=== PATIENT | female | born 1980 | race African-American/Black ===

== ENCOUNTER 2016-11-26 12:10 | Emergency (ER) | payer OTHER ==
[2016-11-26 12:25] VITALS: BMI 26.6
[2016-11-26] MEDS ORDERED: KETOROLAC TROMETHAMINE 30 MG/1 ML VIAL IVPUSH ONE (13:23)
[2016-11-26] MEDS ORDERED: ONDANSETRON 4 MG/2 ML VIAL IVPUSH ONE (13:23)
[2016-11-26] MEDS ORDERED: SODIUM CHLORIDE 1,000 ML IV STA (13:24)
--- NOTE | 2016-11-26 13:25 | PDOC ---
History of Present Illness - General Chief Complaint: Nausea/Vomiting Stated Complaint: VOMITING, PAIN Time Seen by Provider: 11/26/16 13:06 History Source: Patient - History of Present Illness Timing/Duration: other Associated Symptoms: reports: nausea/vomiting. denies: chest pain, cough, fever /chills, headaches, shortness of breath Past History - Past Medical History Allergies/Adverse Reactions: Allergies Allergy/AdvReac Type Severity Reaction Status Date / Time No Known Allergies Allergy Verified 11/26/16 12:22 Home Medications: Ambulatory Orders Amoxicillin/Potassium Clav [Augmentin 875-125 Tablet] 1 each PO BID #20 tablet 04/15/15 Oxycodone HCl/Acetaminophen [Percocet 5/325 -] 1 tab PO Q6H PRN #4 tablet Acetaminophen [Tylenol] 650 mg PO Q6H #30 tablet 11/26/16 Ondansetron HCl [Zofran] 4 mg PO Q8H #20 tablet 11/26/16 Asthma: No Cancer: No Cardiac Disorders: No Diabetes: No HTN: No Suicide Attempt (Hx): No Seizures: No Thyroid Disease: No - Surgical History Abdominal Surgery: (PREG W/TWINS IN 2014; ONE ; PT HAD MED ) - Reproductive History (#): 7 Para: 6 Therapeutic (s) & number: Yes (1) Spontaneous : 1 - Immunization History Immunization Up to Date: Yes - Psycho/Social/Smoking Cessation Hx Anxiety: No Suicidal Ideation: No Smoking History: Never smoked Number of Cigarettes Smoked Daily: 15 Information on smoking cessation initiated: No Hx Alcohol Use: No Drug/Substance Use Hx: Yes (MARIJUANA) Substance Use Type: Marijuana Hx Substance Use Treatment: No Review of Systems - Review of Systems Constitutional: No: Chills, Fever Respiratory: No: Cough, Shortness of Breath Cardiac (ROS): No: Chest Pain ABD/GI: Yes: Nausea, Vomiting. No: Diarrhea : No: Dysuria *Physical Exam - Vital Signs Last Vital Signs Temp Pulse Resp BP Pulse Ox 98.9 F 72 16 155/102 98 11/26/16 12:22 11/26/16 12:22 11/26/16 12:22 11/26/16 12:22 11/26/16 12:22 - Physical Exam General Appearance: Yes: Appropriately Dressed. No: Apparent Distress HEENT: positive: Normal Voice, TMs Normal, Tonsillar Exudate. negative: Scleral Icterus (R), Scleral Icterus (L) Neck: positive: Supple. negative: Lymphadenopathy (R), Lymphadenopathy (L) Respiratory/Chest: positive: Lungs Clear, Normal Breath Sounds. negative: Respiratory Distress Cardiovascular: positive: Regular Rate, S1, S2 Gastrointestinal/Abdominal: positive: Soft. negative: Tender Musculoskeletal: negative: CVA Tenderness Integumentary: positive: Dry, Warm Neurologic: positive: Fully Oriented, Alert, Normal Mood/Affect ED Treatment Course - LABORATORY CBC & Chemistry Diagram: 11/26/16 13:35 11/26/16 13:35 Medical Decision Making - Medical Decision Making 11/26/16 13:33 36-year-old female, denies any past medical history, here with sudden onset nausea, vomiting that started 2 days ago. States her abdomen and back hurts when she vomits, otherwise is not having any abdominal pain. Denies diarrhea, constipation, fever or chills. Also complaining of sore throat. No recent travel or sick contacts. Admits to smoking marijuana but has not smoked in over a year as per patient See exam N/V Mildly hypertensive in ED, otherwise stable w/ b/l tonsillar exudates b/l, exam otherwise unremarkable R/o strep -throat cx -pain control -zofran -IVF -labs 11/26/16 15:47 11/26/16 15:48 Labs unremarkable for mildly decreased potassium. K repleted. Patient reports feeling better and requesting food. Will do po and reassess 11/26/16 16:21 Pt able to tolerate po. Blood pressure improved on reassessment. Patient stable for discharge with supportive treatment. Reasons to return discussed with patient 11/26/16 16:34 *DC/Admit/Observation/Transfer Diagnosis at time of Disposition: Nausea & vomiting Qualifiers: Vomiting type: unspecified Vomiting Intractability: non-intractable Qualified Code(s): R11.2 - Nausea with vomiting, unspecified - Discharge Dispostion Disposition: HOME Condition at time of disposition: Improved - Prescriptions Prescriptions: Acetaminophen [Tylenol] 650 mg PO Q6H #30 tablet Ondansetron HCl [Zofran] 4 mg PO Q8H #20 tablet - Referrals Referrals: Dean Cervantes MD [Primary Care Provider] - - Patient Instructions Printed Discharge Instructions: DI for Vomiting -- Adult Additional Instructions: The cause of your symptoms is most likely viral as your blood work were normal. Rest, drink plenty of fluids and take medications as directed. If symptoms worsen or your develop abdominal pain, return to ED - Post Discharge Activity Work/School Note: Back to Work
[2016-11-26 13:45] LABS: BASOPHIL 0.4 % (0-2.0); EOSINOPHIL 0.5 % (0-4.5); MCH 31.3 pg (25.7-33.7); MCHC 33.5 g/dl (32.0-36.0); MEAN CELL VOLUME 93.5 fl (80-96); MEAN PLT VOLUME 7.9 fl (7.5-11.1); NEUTROPHILS 71.6 % (42.8-82.8); PLATELET COUNT 251 K/MM3 (134-434); RDW 13.8 % (11.6-15.6); WHITE BLOOD COUNT 8.8 K/mm3 (4.0-10.0)
[2016-11-26] MEDS ORDERED: KETOROLAC TROMETHAMINE 30 MG/1 ML VIAL ONE ×2 (13:46)
[2016-11-26] MEDS ORDERED: ONDANSETRON 4 MG/2 ML VIAL ONE (13:46)
[2016-11-26 14:01] LABS: ALBUMIN 3.6 g/dl (3.4-5.0); ALK PHOS 90 U/L (45-117); ANION GAP 14 (8-16); BILIRUBIN,TOTAL 0.4 mg/dL (0.2-1.0); CO2 25 mmol/L (21-32); CREATININE 0.7 mg/dL (0.55-1.02); GLUCOSE,RANDOM 84 mg/dL (74-106); SGOT/AST 10 U/L (15-37); SGPT/ALT 15 U/L (12-78); TOT PROT 7.2 g/dl (6.4-8.2)
[2016-11-26 14:09] LABS: URINE APPEARANCE CLOUDY; URINE BLOOD 3+ (NEGATIVE); URINE COLOR AMBER; URINE GLUCOSE (UA) NEGATIVE (NEGATIVE); URINE KETONE 2+ (NEGATIVE); URINE NITRITE NEGATIVE (NEGATIVE); URINE UROBILINOGEN 4.0 E.U/dl mg/dL (0.2-1.0)
[2016-11-26 14:18] LABS: URINE LEUK ESTERASE 1+ (NEGATIVE); URINE PROTEIN 2+ (NEGATIVE)
[2016-11-26 14:24] LABS: URINE MUCUS MODERATE; URINE RBC 375 /hpf (0-3); URINE WBC 30 /hpf (3-5)
[2016-11-26 14:51] LABS: HIV 1 & 2 AB NEGATIVE; HIV 1 AGp24 NEGATIVE
[2016-11-26] MEDS ORDERED: POTASSIUM CHLORIDE ORAL LIQUID 20 MEQ/15 ML PO ONE (15:47)
[2016-11-26] MEDS ORDERED: POTASSIUM CHLORIDE TABS 20 MEQ TABLET.ER (FP) PO ONE (16:22)
[2016-11-26 16:36] VITALS: BP 157/97; PULSE 53; TEMP 98.3
== END 2016-11-26 16:51 | disposition home or self-care (01) ==
LOC: JER 12:10
PROC: 3E0337Z Introduction of Electrolytic and Water Balance Substance into Peripheral Vein, Percutaneous Approach (ICD-10-PCS; principal; 2016-11-26)
PROC: 3E0333Z Introduction of Anti-inflammatory into Peripheral Vein, Percutaneous Approach (ICD-10-PCS; 2016-11-26)
PROC: 3E033GC Introduction of Other Therapeutic Substance into Peripheral Vein, Percutaneous Approach (ICD-10-PCS; 2016-11-26)
DX: R11.2 Nausea with vomiting, unspecified (principal); E87.6 Hypokalemia; F17.210 Nicotine dependence, cigarettes, uncomplicated; F12.10 Cannabis abuse, uncomplicated
CPT/HCPCS: 36415; 80053; 81003; 81015; 83690; 84703; 85025; 87070; 87077; 87389; 87430; 99281-25; 99283-25

== ENCOUNTER 2019-12-28 13:12 | Inpatient (IN) | payer OTHER ==
[2019-12-28 13:21] VITALS: BMI 29.5
--- OUTSIDE RECORDS SUMMARY | 2019-12-28 13:22 | XMS ---
:1980 Author Organization [facility] Support Name Relationship Address Phone UE Unavailable Unavailable Unavailable SANCHEZ MOTHER [address] [place] [id number] Re-disclosure Warning The records that you are about to access may contain information from federally- assisted alcohol or drug abuse programs. If such information is present, then the following federally mandated warning applies: This information has been disclosed to you from records protected by federal confidentiality rules (42 CFR part 2). The federal rules prohibit you from making any further disclosure of this information unless further disclosure is expressly permitted by the written consent of the person to whom it pertains or as otherwise permitted by 42 CFR part 2. A general authorization for the release of medical or other information is NOT sufficient for this purpose. The Federal rules restrict any use of the information to criminally investigate or prosecute any alcohol or drug abuse patient.The records that you are about to access may contain highly sensitive health information, the redisclosure of which is protected by Article 27-F of the [facility] Public Health law. If you continue you may haveaccess to information: Regarding HIV / AIDS; Provided by facilities licensed or operated by the [facility] Office of Mental Health; or Provided by the [facility] Office for People With Developmental Disabilities. If such information is present, then the following [facility] mandated warning applies: This information has been disclosed to you from confidential records which are protected by state law. State law prohibits you from making any further disclosure of this information without the specific written consent of the person to whom it pertains, or as otherwise permitted by law. Any unauthorized further disclosure in violation of state law may result in a fine or penitentiary sentence or both. A general authorization for the release of medical or other information is NOT sufficient authorization for further disclosure. Insurance Providers Payer name Policy type Policy ID Covered Covered constitution party's Policy P flaca / Coverage constitution party ID relationship to [employer] Inf ormation type jimenez [employer] MEDICAID [id number] O
--- NOTE | 2019-12-28 14:03 | PDOC ---
History of Present Illness - General Chief Complaint: Shortness of Breath Stated Complaint: R/O COVID Time Seen by Provider: 12/28/19 13:28 - History of Present Illness Initial Comments: HPI: 12/28/19 14:00 39 yo F PMH smoker, walking pneumonia 2 years ago, tooth infections (planned to have all teeth removed), presenting with SOB. Notes that she has been feeling increasingly SOB over the past 2 weeks, and is now having difficulty sleeping. Endorses SHEA (can't climb hills) and orthopnea (requiring at least 2 pillows to be able to lay relatively supine), and further endorses watery diarrhea for the past three days. Denies CP, fevers/chills, abd pain, CORONA, N/V, urinary changes. States that her breathing feels similar to when she had pneumonia. Denies any recent travel and stays primarily at home, only goes to grocery store and wears mask when she goes. No known COVID contacs, lives at home with herself and her children. Notes that two of her children go to school in person four days a week. Reports that she has been taking ibuprofen 800 mg at least twice a day for tooth pain over the same time period. ROS: GENERAL/CONSTITUTIONAL: endorses difficulty sleeping. Denies fever, chills, diaphoresis, generalized weakness HEAD, EYES, EARS, NOSE AND THROAT: denies rhinorrhea, nasal congestion NEUROLOGIC: denies headache, focal weakness, dizziness, mental status changes CARDIOVASCULAR: denies chest pain, syncope, palpitations, irregular heart rate, lightheadedness, peripheral edema RESPIRATORY: endorses cough, shortness of breath, dyspnea with exertion, and orthopnea GASTROINTESTINAL: endorses diarrhea. Denies abdominal pain, abdominal distension, nausea, vomiting, constipation GENITOURINARY: denies dysuria, frequency, urgency MUSCULOSKELETAL: denies myalgia, arthralgia, joint swelling, back pain, neck pain SKIN: denies rash, itching PE: Gen: well-developed, well-nourished, appears uncomfortable Neuro: AAOX4, CN II-XII intact HEENT: atraumatic, normocephalic Neck: trachea midline, supple CV: regular rate, regular rhythm, no murmurs, rubs, or gallops Pulm: poor inspiratory effort, otherwise CTA b/l, no wheezing Abd: soft, non-distended, non-tender MSK: full ROM, intact pulses Extr: no edema, no deformities Skin: warm, dry MDM: Concern for COVID-19 vs PNA vs CHF. Potentially masking fever with ibuprofen use. - EKG, CXR - trop - COVID order set - COVID-19 swab - likely admit EKG normal sinus at 92 bpm, SC 150, QRS 90, QTc 464, T wave inversions in V5 and V6. 12/28/19 15:33 Serum preg negative, CBC unremarkable. 12/28/19 16:04 BNP >9000. Concerning for new onset CHF. Will f/u CXR, admit. 12/28/19 16:24 CXR with bilateral fluid overload. Will give Lasix 40mg, admit. 12/28/19 16:[address] Arcenio Cervantes, patient has never been to his office. Patient believes that she visited him two months ago. Will admit to hospitalist. Past History - Medical History Allergies/Adverse Reactions: Allergies Allergy/AdvReac Type Severity Reaction Status Date / Time No Known Allergies Allergy Verified 12/28/19 13:17 Home Medications: Ambulatory Orders Acetaminophen [Tylenol] 650 mg PO Q6H #30 tablet 11/26/16 Ondansetron HCl [Zofran] 4 mg PO Q8H #20 tablet 11/26/16 Asthma: No Cancer: No Cardiac Disorders: No Diabetes: No HTN: No Seizures: No Thyroid Disease: No - Surgical History Abdominal Surgery: (PREG W/TWINS IN 2014; ONE ; PT HAD MED ) - Reproductive History Is Patient Now?: No (#): 7 Para: 6 Therapeutic (s) & number: Yes (1) Spontaneous : 1 - Immunization History Immunization Up to Date: Yes - Psycho-Social/Smoking History Smoking History: Current every day smoker Number of Cigarettes Smoked Daily: 10 Information on smoking cessation initiated: No - Substance Abuse Hx (Audit-C & DAST Scrn) How often the patient has a drink containing alcohol: Never Score: In Men: 4 or > Positive; In Women: 3 or > Positive: 0 Screen Result (Pos requires Nsg. Audit-10AR): Negative *Physical Exam - Vital Signs Last Vital Signs Temp Pulse Resp BP Pulse Ox 99.0 F 75 26 H 122/78 92 L 10/15/20 13:17 12/28/19 13:17 12/28/19 13:17 12/28/19 13:17 12/28/19 13:17 ED Treatment Course - LABORATORY CBC & Chemistry Diagram: 12/29/19 11:30 12/29/19 11:30 Discharge - Discharge Information Problems reviewed: Yes Clinical Impression/Diagnosis: SOB (shortness of breath) on exertion, Orthopnea, New onset of congestive heart failure Disposition: TRANSFER ACUTE CARE/OTHER HOSP - Follow up/Referral - Patient Discharge Instructions - Post Discharge Activity
[2019-12-28 14:48] LABS: BASO % 0.8 % (0-2.0); EOS % 1.9 % (0-4.5); HEMATOCRIT 34.5 % (32.4-45.2); HEMOGLOBIN 11.2 GM/dL (10.7-15.3); LYMPH % 33.5 % (8-40); MCH 29.5 pg (25.7-33.7); MCHC 32.6 g/dl (32.0-36.0); MEAN CELL VOLUME 90.6 fl (80-96); MEAN PLT VOLUME 8.4 fl (7.5-11.1); MONO % 6.4 % (3.8-10.2); NEUT % 57.4 % (42.8-82.8); PLATELET COUNT 301 K/MM3 (134-434); RDW 14.4 % (11.6-15.6); WHITE BLOOD COUNT 5.4 K/mm3 (4.0-10.0)
[2019-12-28 15:33] LABS: ALBUMIN 3.1 g/dl (3.4-5.0); ANION GAP 5 MMOL/L (8-16); BLOOD UREA NITROGEN 10.8 mg/dL (7-18); CALCIUM 8.4 mg/dL (8.5-10.1); CHLORIDE 110 mmol/L (98-107); CO2 26 mmol/L (21-32); CREATININE 0.7 mg/dL (0.55-1.3); GLUCOSE,RANDOM 93 mg/dL (74-106); MAGNESIUM 2.2 mg/dL (1.8-2.4); POTASSIUM 3.4 mmol/L (3.5-5.1); SGOT/AST 20 U/L (15-37); SGPT/ALT 52 U/L (13-61); SODIUM 141 mmol/L (136-145)
[2019-12-28 15:37] LABS: ALK PHOS 67 U/L (45-117); BILIRUBIN,TOTAL 0.7 mg/dL (0.2-1); N-TERMINAL BNP 9396.2 pg/ml (5-125)
[2019-12-28 15:48] LABS: LDH 183 U/L (84-246)
--- NOTE | 2019-12-28 16:21 | PDOC ---
Documentation entered by Prem Hammonds SCRIBE, acting as scribe for Baltazar Hall MD. Baltazar Hall MD: This documentation has been prepared by the Nasra pereira Angel, SCRIBE, under my direction and personally reviewed by me in its entirety. I confirm that the documentation accurately reflects all work, treatment, procedures, and medical decision making performed by me. Attending Attestation - Resident Resident Name: DarronDemetra - ED Attending Attestation I have performed the following: I have examined & evaluated the patient, The case was reviewed & discussed with the resident, I agree w/resident's findings & plan, Exceptions are as noted - HPI HPI: 12/28/19 14:26 The patient is a 39 year old female with a significant past medical history of walking pneumonia (2 years ago), smoker (quit 1 wk ago 2/2 sxs) and teeth infections who presents to the ED with worsening SOB for the past 2 weeks. The patient states she has had difficulty sleeping as she is short of breath when lying down and dyspnea on exertion. The patient notes her symptoms feel similar to when she had pneumonia in the past. The patient also reports 3 days of watery diarrhea, no blood in the stool. The patient has been taking 800mg of Ibuprofen for her tooth pain. The patient denies chest pain, fever/chills, recent travel, abdominal pain, nausea, vomiting or headache. Denies LE edema, calf pain, or immobility. Does not take exogenous hormones. No personal or fam hx of clots. - Physicial Exam PE: 12/28/19 14:11 GENERAL: Awake, alert, and fully oriented, in no acute distress EYES: PERRLA, EOMI, sclera anicteric, conjunctiva clear ENT: Oropharynx clear without exudates. Moist mucosa NECK: Normal ROM, supple, no lymphadenopathy, JVD, or masses LUNGS: Diminished BS at bases R>L, No wheezes, and no crackles HEART: Regular rate and rhythm, normal S1 and S2, no murmurs, rubs or gallops ABDOMEN: Soft, nontender, normoactive bowel sounds. No guarding, no rebound. No masses EXTREMITIES: Normal range of motion, no edema. No clubbing or cyanosis. No cords, erythema, or tenderness NEUROLOGICAL: Normal speech, cranial nerves intact, 5/5 strength in all 4 extremities, normal sensation to light touch in all 4 extremities, normal cerebellar exam, normal gait SKIN: Warm, Dry, normal turgor, no rashes or lesions noted. - Medical Decision Making 12/28/19 15:15 39-year-old female with a history of walking pneumonia and smoking presents the emergency department with 2 weeks of progressive shortness of breath on exertion and orthopnea. Vitals remarkable for tachypnea and hypoxia to 92% which corrects with 3 L of nasal cannula. Patient has diminished breath sounds at the bases on exam, right greater than left. Differential includes congestive heart failure versus pneumonia versus COVID versus pulmonary embolism. Symptoms including SHEA and orthopnea as well as diminished BS more concerning for CHF but if w/u is not consistent with this, will consider CTA. Pt also has no CP and no RF for PE. Plan: -tele -labs -UPT -COVID -consider CTA to r/o PE -anticipate admission 12/28/19 16:21 Labs with elevated BNP CXR on my read with congestion, cardiomegaly Likely new onset CHF Will diurese, admit for further w/u Discharge - Discharge Information Problems reviewed: Yes Clinical Impression/Diagnosis: SOB (shortness of breath) on exertion, Orthopnea, New onset of congestive heart failure - Follow up/Referral Referrals: Arcenio Cervantes [facility] IM [Primary Care Provider] - - Patient Discharge Instructions - Post Discharge Activity
[2019-12-28] MEDS ORDERED: FUROSEMIDE 40 MG/4 ML INJECTABLE VIAL IVPUSH ONE (16:25)
[2019-12-28] MEDS ORDERED: FUROSEMIDE 40 MG/4 ML INJECTABLE VIAL ONE (17:00)
--- NOTE | 2019-12-28 17:14 | HP ---
CHIEF COMPLAINT: SOB PCP: Dr. Arcenio Cervantes HISTORY OF PRESENT ILLNESS: 39 F h/o THC abuse, active smoker, h/o poor dentition w/ multiple dental caries, presents with SOB, cough, orthopnea/PND x2-3 days. Patient endorses being at a libertarian last weekend in [place] with some friends where she binged on alcohol and marijuana, then around Wed-Wednesday started to feel SOB and not able to lay flat. Patient endorses living with her 6 children, denies anyone feeling ill in the household. Pt. endorses heavy sensation in chest, and can't quite catch her breath which warranted her to go to ED. Patient also endorses subjective fever and chills. ER course was notable for: (1) CXR s/o cardiomegaly, congestive changes (2) BNP >9000 (3) IV Lasix 40mg given (4) Zosyn started for tooth abscess Recent Travel: traveled to [place] last weekend ([place], [place]) PAST MEDICAL HISTORY: as above PAST SURGICAL HISTORY: denies Social History: yes Smoking: heavy smoker Alcohol: yes Drugs: Yes, THC Allergies No Known Allergies Allergy (Verified 12/28/19 13:17) HOME MEDICATIONS: Home Medications Medication Instructions Recorded Acetaminophen [Tylenol] 650 mg PO Q6H #30 tablet 11/26/16 Ondansetron HCl [Zofran] 4 mg PO Q8H #20 tablet 11/26/16 PHYSICAL EXAMINATION Vital Signs - 24 hr 12/28/19 13:17 Temperature 99.0 F Pulse Rate 75 Respiratory 26 H Rate Blood Pressure 122/78 O2 Sat by Pulse 92 L Oximetry (%) GA AAxo3, answering to questions, occasional cough HEENT NC/AT, no JVD, dry MM, poor dentition w/ some maxillary tenderness, no oral thrush Chest crackles at bases, slightly tachypneic CVS S1, S2+, RRR, no m/r/g Abd Soft, NT, ND, BS+ no CVA tenderness Ext no LE edema, no calf tenderness Laboratory Results - last 24 hr 12/28/19 12/28/19 12/28/19 14:25 14:25 14:25 WBC 5.4 RBC 3.80 Hgb 11.2 Hct 34.5 D MCV 90.6 MCH 29.5 MCHC 32.6 RDW 14.4 Plt Count 301 MPV 8.4 Absolute Neuts (auto) 3.1 Neutrophils % 57.4 Lymphocytes % 33.5 D Monocytes % 6.4 Eosinophils % 1.9 D Basophils % 0.8 Nucleated RBC % 0 Sodium 141 Potassium 3.4 L Chloride 110 H Carbon Dioxide 26 Anion Gap 5 L BUN 10.8 Creatinine 0.7 Est GFR (CKD-EPI)AfAm 128.28 Est GFR (CKD-EPI)NonAf 110.69 Random Glucose 93 Calcium 8.4 L Magnesium 2.2 Ferritin 11.9 Total Bilirubin 0.7 AST 20 ALT 52 Alkaline Phosphatase 67 LD Total 183 Troponin I 0.03 C-Reactive Protein < 0.3 B-Natriuretic Peptide 9396.2 H Total Protein 6.0 L Albumin 3.1 L Serum , Qual Negative Home Medications Medication Instructions Recorded Acetaminophen [Tylenol] 650 mg PO Q6H #30 tablet 11/26/16 Ondansetron HCl [Zofran] 4 mg PO Q8H #20 tablet 11/26/16 Current Medications Generic Name Dose Route Start Last Admin Trade Name Freq PRN Reason Stop Dose Admin Piperacillin Sod/Tazobactam 50 mls @ 100 mls/hr 12/28/19 18:00 Sod 3.375 gm/ Dextrose IVPB Q8H-IV JOVAN Protocol Piperacillin Sod/Tazobactam 50 mls @ 100 mls/hr 12/28/19 18:00 Sod 3.375 gm/ Dextrose IVPB 12/29/19 10:29 Q8H-IV JOVAN Protocol ASSESSMENT/PLAN: 39 F r/o COVID pneumonitis r/o COVID/viral induced cardiomyopathy New onset CHFE THC abuse Multiple dental caries w/ suspected dental abscess Plan: IV Lasix 40mg dose given in ED, cont. Lasix 40mg daily Echo to assess LV function Serial EKG/troponins Send TFTs/A1c/lipids Send inflammatory markers for COVID Swab for full respiratory panel (RSV/Flu/Strep/Mycoplasma/Legionella) Cardiology evaluation for new onset CHF ID evaluation DVT ppx: Lovenox SC Family Medical History Family History: As Documented Visit type - Emergency Visit Emergency Visit: Yes Care time: The patient presented to the Emergency Department on the above date and was hospitalized for further evaluation of their emergent condition. - New Patient This patient is new to me today: Yes Date on this admission: 12/28/19 - Critical Care Critical Care patient: No
[2019-12-28] MEDS ORDERED: PIPERACILLIN/TAZOB 3.375 GM 3.375 GM in DEXTROSE 5%-WATER - 50 ML IVPB SCH (18:00)
[2019-12-28] MEDS ORDERED: POTASSIUM CHLORIDE TABS 20 MEQ TABLET.ER (FP) PO ONE ×2 (18:00→21:31)
--- OUTSIDE RECORDS SUMMARY | 2019-12-28 18:08 | XMS ---
:1980 Author Organization [facility] Support Name Relationship Address Phone UE Unavailable Unavailable Unavailable UE Unavailable Unavailable Unavailable SANCHEZ MOTHER [address] [phone] [place] [id number] Re-disclosure Warning The records that you are [...] is protected by Article 27-F of the [facility] Public Health law. If you continue you may haveaccess to information: Regarding HIV / AIDS; Provided by facilities licensed or operated by the [facility] Office of Mental Health; or Provided by the [facility] Office for People With Developmental Disabilities. If such information is present, then the following [facility] mandated warning applies: This information has been [...] law may result in a fine or custodial sentence or both. A general authorization for the release of medical or other information is NOT sufficient authorization for further disclosure. Insurance Providers Payer name Policy type Policy ID Covered Covered alliance party's Policy P flaca / Coverage alliance party ID relationship to [employer] Inf ormation type jimenez [place] [id number] [facility] [place]
[2019-12-28 18:20] LABS: CHOLESTEROL 151 mg/dL (50-200); HDL CHOLESTEROL 67 mg/dL (40-60); LDL CHOLESTEROL (ONLY SJRH) 71 mg/dL (5-100); TRIGLYCERIDES 83 mg/dL (0-150)
[2019-12-28 18:35] LABS: URINE APPEARANCE CLEAR; URINE BILIRUBIN NEGATIVE (NEGATIVE); URINE COLOR YELLOW; URINE GLUCOSE (UA) NEGATIVE (NEGATIVE); URINE KETONE NEGATIVE (NEGATIVE); URINE LEUK ESTERASE NEGATIVE (NEGATIVE); URINE NITRITE NEGATIVE (NEGATIVE); URINE PROTEIN TRACE (NEGATIVE)
[2019-12-28 18:41] LABS: COCAINE, UR NEGATIVE ng/ml (CUTOFF=300); OPIATES, URI NEGATIVE ng/ml (CUTOFF=300); PHENCYCLIDINE,URINE NEGATIVE ng/ml (CUTOFF=25); URINE AMPHETAMINES NEGATIVE ng/ml (CUTOFF=500); URINE BARBITURATES NEGATIVE ng/ml (CUTOFF=200); URINE BENZODIAZEPINES NEGATIVE ng/ml (CUTOFF=200)
[2019-12-28 18:46] LABS: METHADONE, UR NEGATIVE ng/ml (CUTOFF=300)
[2019-12-28 20:12] LABS: INR 0.99 (0.83-1.09)
[2019-12-28 20:15] LABS: ACTIVATED PTT 29.3 SECONDS (25.2-36.5)
[2019-12-28] MEDS ORDERED: PIPERACILLIN/TAZOB 3.375 GM 3.375 GM/50 ML BAG IVPB ONE (21:31)
[2019-12-28] MEDS: PIPERACILLIN/TAZOB 3.375 GM 3.375 GM in DEXTROSE 5%-WATER - 50 ML IVPB SCH (21:49)
[2019-12-29] MEDS ORDERED: PIPERACILLIN/TAZOB 3.375 GM 3.375 GM/50 ML BAG IVPB ONE ×2 (02:37→11:05)
[2019-12-29] MEDS: PIPERACILLIN/TAZOB 3.375 GM 3.375 GM in DEXTROSE 5%-WATER - 50 ML IVPB SCH ×2 (02:54→11:00)
--- NOTE | 2019-12-29 05:53 | CON.CARD ---
Consult Consult Specialty:: Cardiology Referred by:: Dr. Vigil Reason for Consultation:: CHF, new onset - History of Present Illness Chief Complaint: SOB History of Present Illness: 39M with hx THC use presents with SOB/cough and orthopnea. Found to have BNP 9K D- dimer negative. Chest CT with peripheral vascular congestion, cardiomegaly as well as pleural and pericardia effusions. New onset CHF. Received IV Lasix in ER. COVID pending She describes 2 weeks of progressive SHEA, orthopnea. Denies fever/chills No edema Denies palps/CP Denies recent viral illness. Mother may have had similar history. She denies use of cocaine. Normal thyroid studies - History Source History Provided By: Patient Limitations to Obtaining History: No Limitations - Past Medical History [employer]: No: Alzheimer's, CVA, Dementia, Migraine, Multiple Sclerosis, Peripheral Neuropathy, Parkinson's, Seizure, Syncope, TIA, Vertigo, Other Cardio/Vascular: No: AFIB, Aneurysm, Aortic Insufficiency, Aortic Stenosis, CAD, CHF, Deep Vein Thrombosis, HTN, Hyperlipdemia, ND, Mitral Insufficiency, Mitral Stenosis, Murmur, Pulmonary Hypertension, Other Pulmonary: No: Asthma, Bronchitis, Cancer, COPD, O2 Dependent, Pneumonia, Previously Intubated, Pulmonary Embolus, Pulmonary Fibrosis, Sleep Apnea, Other Gastrointestinal: No: Ascites, Cancer, Constipation, Crohn's Disease, Diverticulitis, Diverticulosis, Esophageal Varices, Gastritis, GERD, GI Bleed, Hemorrhoids, Hiatal Hernia, Inflamatory Bowel Disease, Irritable Bowel Disease, Pancreatitis, Peptic Ulcer Disease, Ulcerative Colitis, Other Hepatobiliary: No: Cirrhosis, Cholelithiasis, Cholecystitis, Choledocholithiasis, Hepatitis A, Hepatitis B, Hepatitis C, Other Renal/: No: Renal Failure, Renal Inusuff, BPH, Cancer, Hematuria, Hemodialysis, Neurogenic Bladder, Renal Calculi, UTI, Other ...LMP: 12/16/19 ...: No Heme/Onc: No: Anemia, B12 Deficiency, Bleeding Disorder, Cancer, Current Chemotherapy, Current Radiation Therapy, Hemochromatosis, Hypercoaguable State, Myeloproliferative Synd, Sickle Cell Disease, Sickle Cell Trait, Thrombocytopenia, Other Infectious Disease: No: AIDS, C-Diff, Herpes Zoster, HIV, MRSA, STD's, Tuberculosis, VREF, Other Psych: No: Addictions, Anxiety, Bipolar, Depression, Panic, Psychosis, S chizophrenia, Other Musculoskeletal: No: Bursitis, Chronic low back pain, Hemiparesis, Hemiplegia, Osteoarthritis, Paraplegia, Other Rheumatology: No: Fibromyalgia, Gout, Lupus, Rheumatoid Arthritis, Sarcoidosis, Vasculitis, Other ENT: No: Allergic Rhinitis, Sinusitis, Other Endocrine: No: Ford's Disease, Hernandez's Disease, Diabetes Insipidus, Diabetes Mellitus, Hyperparathyroidism, Hyperthyroidism, Hypothyroidism, Osteopenia, SIADH, Other - Alcohol/Substance Use Hx Alcohol Use: No - Smoking History Smoking history: Current every day smoker Aproximately how many cigarettes per day: 10 - Social History ADL: Independent History of Recent Travel: No Home Medications - Allergies Allergies/Adverse Reactions: Allergies Allergy/AdvReac Type Severity Reaction Status Date / Time No Known Allergies Allergy Verified 12/28/19 13:17 - Home Medications Home Medications: Ambulatory Orders Acetaminophen [Tylenol] 650 mg PO Q6H #30 tablet 11/26/16 Ondansetron HCl [Zofran] 4 mg PO Q8H #20 tablet 11/26/16 Family Medical History Family History: Unremarkable Review of Systems - Review of Systems Constitutional: reports: Weakness Eyes: reports: No Symptoms HENT: reports: No Symptoms Neck: reports: No Symptoms Cardiovascular: reports: Shortness of Breath Respiratory: reports: Exercise Intolerance, Orthopnea Gastrointestinal: denies: No Symptoms, Abdominal Pain, Bloating, Constipation, Diarrhea, Dysphagia, Indigestion, Melena, Nausea, Rectal Bleeding, Vomiting, Vomiting Blood, Other Genitourinary: denies: No Symptoms, Burning, Discharge, Dysuria, Flank Pain, Frequency, Hematuria, Incontinence, Lesions, Menses, Pain, Testicular Mass, Testicular Pain, Testicular Swelling, Urgency, Vaginal Bleeding, Other Breasts: denies: No Symptoms Reported, See HPI, Breast Implants, Discharge from Nipple, Lumps, Pain, Skin Changes, Other Musculoskeletal: denies: No Symptoms, Back Pain, Crepitus, Decreased ROM, Extremity Pain, Joint Pain, Joint Swelling, Muscle Pain, Muscle Cramps, Muscle Weakness, Other Integumentary: denies: No Symptoms, Blister, Bruising, Change in Color, Eczema, Erythema, Incision, Lesions, Lump, Pallor, Pruritis, Rash, Wound, Other Neurological: denies: No Symptoms, Change in LOC, Change in Speech, Confusion, Dizziness, Headache, Incoordination, Numbness, Parasthesia, Pre-Existing Deficit, Seizure, Syncope, Tremors, Unsteady Gait, Weakness, Other Endocrine: denies: No Symptoms, Excessive Sweating, Flushing, Increased Hunger, Increased Thirst, Intolerance to Cold, Intolerance to Heat, Unexplained Weight Gain, Unexplained Weight Loss, Other Psychiatric: denies: No Symptoms, Altered Sleep Pattern, Anxiety, Depression, Hallucinations, Panic, Paranoia, Suicidal, Other Vital Signs: Vital Signs Temperature 98.8 F 12/29/19 02:44 Pulse Rate 92 H 12/29/19 02:44 Respiratory Rate 17 12/29/19 02:44 Blood Pressure 129/89 12/29/19 02:44 O2 Sat by Pulse Oximetry (%) 98 12/29/19 02:44 Constitutional: Yes: No Distress Eyes: Yes: Conjunctiva Clear HENT: Yes: Atraumatic, Normocephalic Neck: Yes: Supple Respiratory: Yes: Other (rales left base) Gastrointestinal: Yes: Soft Heart Sounds: Yes: S1, S2, S3 Edema: No (warm and well perfused) Peripheral Pulses WNL: Yes Neurological: Yes: Alert, Oriented ...Motor Strength: WNL - Other Data Labs, Other Data: CBC, BMP 12/28/19 14:25 12/28/19 14:25 INR, PTT INR 0.99 (0.83-1.09) 12/28/19 18:00 Troponin, BNP 12/28/19 12/28/19 14:25 22:40 Troponin I 0.03 0.03 B-Natriuretic Peptide 9396.2 H Troponin, BNP 12/28/19 12/28/19 14:25 22:40 Troponin I 0.03 0.03 B-Natriuretic Peptide 9396.2 H NSR, borderline LVH, nonspecific ST changes Echo: Pending Imaging - Results Chest X-ray: Report Reviewed, Image Reviewed Cat Scan: Report Reviewed, Image Reviewed EKG: Image Reviewed Assessment/Plan IMP: New onset CHF with cardiomyopathy of unclear etiology Pericardial effusion REC: 1. New onset CHF/cardiomyopathy: -Telemetry -Echo for EF and better evaluation of pericardial effusion -IV Lasix, daily weights, BMP -Gradual initiation of CHF regimen in the coming days, likely with low dose CATALINA 1st; then beta katharina when euvolemic. -check HIV status/COVID 2. Pericardial effusion: -Echo Will follow
--- NOTE | 2019-12-29 08:59 | EKG ---
Test Reason : Blood Pressure : / mmHG Vent. Rate : 092 BPM Atrial Rate : 092 BPM P-R Int : 150 ms QRS Dur : 090 ms QT Int : 376 ms P-R-T Axes : 040 003 125 degrees QTc Int : 464 ms NORMAL SINUS RHYTHM VOLTAGE CRITERIA FOR LEFT VENTRICULAR HYPERTROPHY NONSPECIFIC ST ABNORMALITY ABNORMAL ECG Confirmed by MICHAEL SULLIVAN MD ([id number]) on 12/29/2019 8:59:11 AM Referred By: Confirmed By:MICHAEL SULLIVAN MD
[2019-12-29 09:58] VITALS: TEMP 98.1
[2019-12-29] MEDS ORDERED: FUROSEMIDE 40 MG/4 ML INJECTABLE VIAL IVPUSH SCH (10:00)
[2019-12-29] MEDS ORDERED: LISINOPRIL 5 MG TABLET PO SCH (10:00)
[2019-12-29] MEDS ORDERED: LISINOPRIL 5 MG TABLET ONE (11:05)
[2019-12-29] MEDS ORDERED: FUROSEMIDE 40 MG/4 ML INJECTABLE VIAL ONE (11:05)
--- NOTE | 2019-12-29 11:10 | ECHO ---
Version: 1 Name: JOSE FITZGERALD Exam: Adult Echocardiogram Study Date: 12/29/2019, 10:13 AM Age: 39 Years MMode/2D Measurements & Calculations IVSd: 0.97 cm LVIDs: 6.0 cm LVIDd: 6.5 cm LVPWd: 1.22 cm LAV (MOD-bp): 95.0 ml ACS: 1.61 cm Ao root diam: 3.0 cm LVOT diam: 2.11 cm LA dimension: 4.3 cm Doppler Measurements & Calculations MV E max som: 93.8 cm/sec Med E/e': 11.3 MV A max som: 52.8 cm/sec Med Peak E' Som: 8.3 cm/sec MV E/A: 1.78 Lat E/e': 15.0 Lat Peak E' Som: 6.3 cm/sec MR max P.7 mmHg Ao max P.7 mmHg Ao V2 max: 95.3 cm/sec Left Ventricle The left ventricle is moderately dilated. Left ventricular systolic function is severely reduced. Ej ection Fraction = 15-20%. Right Ventricle The right ventricle is grossly normal size. The right ventricular systolic function is grossly jann l. Atria The left atrium is moderately dilated. Right atrial size is normal. Mitral Valve The mitral valve is normal in structure and function. There is mild mitral regurgitation. Tricuspid Valve The tricuspid valve is not well visualized, but is grossly normal. There is trace tricuspid regurgit ation. Aortic Valve The aortic valve is trileaflet. No hemodynamically significant valvular aortic stenosis. No aortic regurgitation is present. Pulmonic Valve The pulmonic valve is not well seen, but is grossly normal. There is no pulmonic valvular stenosis. Great Vessels The aortic root is normal size. Pericardium/Pleura Small to moderate pericardial effusion primarily adjacent/posterior to RA/RV. There is diastolic inv ersion of the RA, which may be an early echocardiographic indication of tamponade. Clinical correlation requir ed. Summary Statements The left ventricle is moderately dilated. Left ventricular systolic function is severely reduced. Ejection Fraction = 15-20%. The left atrium is moderately dilated. There is mild mitral regurgitation. Small to moderate pericardial effusion primarily adjacent/posterior to RA/RV. There is diastolic inv ersion of the RA, which may be an early echocardiographic indication of tamponade. Clinical correlation requir ed. MD Ramon *Everardo 12/29/2019, 11:09 AM Ordering Physician: Tunde Vigil Referring Physician: EDISON Performed By: Alix Stafford
[2019-12-29 11:54] LABS: HEMATOCRIT 35.2 % (32.4-45.2); HEMOGLOBIN 11.7 GM/dL (10.7-15.3); MCHC 33.2 g/dl (32.0-36.0); MEAN CELL VOLUME 90.4 fl (80-96); MEAN PLT VOLUME 8.1 fl (7.5-11.1); PLATELET COUNT 311 K/MM3 (134-434); RBC 3.89 M/mm3 (3.60-5.2); RDW 14.5 % (11.6-15.6); WHITE BLOOD COUNT 5.2 K/mm3 (4.0-10.0)
[2019-12-29 12:17] LABS: BILIRUBIN,TOTAL 0.6 mg/dL (0.2-1); BLOOD UREA NITROGEN 12.5 mg/dL (7-18); CALCIUM 8.6 mg/dL (8.5-10.1); CREATININE 0.9 mg/dL (0.55-1.3); MAGNESIUM 2.4 mg/dL (1.8-2.4); POTASSIUM 3.5 mmol/L (3.5-5.1)
--- NOTE | 2019-12-29 13:21 | PN ---
Teaching Attending Note Name of Resident: Danny Cervantes ATTENDING PHYSICIAN STATEMENT I saw and evaluated the patient. I reviewed the resident's note and discussed the case with the resident. I agree with the resident's findings and plan as documented. SUBJECTIVE: Patient still short of breath OBJECTIVE: Vital Signs Period Temp Pulse Resp BP Sys/Pierson Pulse Ox Last 24 Hr 98.0 F-98.8 F 85-94 17-22 129-155/89-121 95-99 Please see resident note for Physical exam Patient examined during bedside rounds ASSESSMENT AND PLAN: 39 y/o F with no significant PMh who presents with SOB Shortness of breath 2/2 new onset heart Failure Patient has Orthopnea/PND/SHEA Continue IV Diuresis goal net negative 2-3l/day Echo with EF 15-20% Stric I/o Keep k>4 Mg>2 Daily weights Patient needs ischemic work up Start patient on ASA, Statin, Check Lipid panel, A1c, TSH Start BB when no longer in acute exacerbation Started on ACEI Cardiology consultation Monitor on Tele Htn Continue ACEI Dental Abscess Continue Zosyn PPx Start Lovenox
[2019-12-29] MEDS ORDERED: ENOXAPARIN NA (PORCINE) 40 MG/0.4 ML DISP.SYRIN SQ SCH (13:30)
[2019-12-29 13:37] VITALS: BP 142/105; PULSE 99
--- NOTE | 2019-12-29 16:34 | DS ---
Physical Exam: SUBJECTIVE: Patient seen and examined in ED. Endorses shortness of breath while supine. Symptoms present for ~ 2 weeks. OBJECTIVE: Vital Signs Period Temp Pulse Resp BP Sys/Pierson Pulse Ox Last 24 Hr 98.0 F-98.8 F 85-99 17-22 129-155/89-121 95-99 PHYSICAL EXAM GENERAL: NAD AAOx3 HEAD: Normal with no signs of trauma. EYES: EOMI Sclera Clear ENT: MMM. Dental carries appreciated upon inspection of mouth. NECK: No JVD appreciated LUNGS: Crackles at bases HEART: RRR S1S2 ABDOMEN: Obese Soft NDNT EXTREMITIES: No CCE appreciated NEUROLOGICAL: Cranial nerves II through XII grossly intact. PSYCH: Normal mood, normal affect. SKIN: Warm, dry, normal turgor, no rashes or lesions noted. LABS Laboratory Results - last 24 hr 12/28/19 12/28/19 12/28/19 14:25 14:25 14:30 WBC RBC Hgb Hct MCV MCH MCHC RDW Plt Count MPV ESR PT with INR INR PTT (Actin FS) D-Dimer Sodium 141 Potassium 3.4 L Chloride 110 H Carbon Dioxide 26 Anion Gap 5 L BUN 10.8 Creatinine 0.7 Est GFR (CKD-EPI)AfAm 128.28 Est GFR (CKD-EPI)NonAf 110.69 Random Glucose 93 Hemoglobin A1c % 4.8 Calcium 8.4 L Phosphorus Magnesium 2.2 Ferritin 11.9 Total Bilirubin 0.7 AST 20 ALT 52 Alkaline Phosphatase 67 LD Total 183 Troponin I 0.03 C-Reactive Protein < 0.3 B-Natriuretic Peptide 9396.2 H Total Protein 6.0 L Albumin 3.1 L Triglycerides 83 Cholesterol 151 Total LDL Cholesterol 71 HDL Cholesterol 67 H TSH 1.72 Free T4 1.18 Urine Color Urine Appearance Urine pH Ur Specific Edwards Urine Protein Urine Glucose (UA) Urine Ketones Urine Blood Urine Nitrite Urine Bilirubin Urine Urobilinogen Ur Leukocyte Esterase Opiates Screen Methadone Screen Barbiturate Screen Phencyclidine Screen Ur Amphetamines Screen MDMA (Ecstasy) Screen Benzodiazepines Screen Cocaine Screen U Marijuana (THC) Screen COVID-19 (ADRIENNE) Not detected HIV Ag/Ab Combo Qual Influenza A (Rapid) Influenza B (Rapid) RSV Rapid 12/28/19 12/28/19 12/28/19 14:30 16:23 17:30 WBC RBC Hgb Hct MCV MCH MCHC RDW Plt Count MPV ESR 5 PT with INR INR PTT (Actin FS) D-Dimer 357 Sodium Potassium Chloride Carbon Dioxide Anion Gap BUN Creatinine Est GFR (CKD-EPI)AfAm Est GFR (CKD-EPI)NonAf Random Glucose Hemoglobin A1c % Calcium Phosphorus Magnesium Ferritin Total Bilirubin AST ALT Alkaline Phosphatase LD Total Troponin I C-Reactive Protein B-Natriuretic Peptide Total Protein Albumin Triglycerides Cholesterol Total LDL Cholesterol HDL Cholesterol TSH Free T4 Urine Color Yellow Urine Appearance Clear Urine pH 7.0 D Ur Specific Edwards 1.017 Urine Protein Trace Urine Glucose (UA) Negative Urine Ketones Negative Urine Blood Negative Urine Nitrite Negative Urine Bilirubin Negative Urine Urobilinogen 1.0 Ur Leukocyte Esterase Negative Opiates Screen Methadone Screen Barbiturate Screen Phencyclidine Screen Ur Amphetamines Screen MDMA (Ecstasy) Screen Benzodiazepines Screen Cocaine Screen U Marijuana (THC) Screen COVID-19 (ADRIENNE) HIV Ag/Ab Combo Qual Influenza A (Rapid) Influenza B (Rapid) RSV Rapid 12/28/19 12/28/19 12/28/19 17:30 17:30 17:30 WBC RBC Hgb Hct MCV MCH MCHC RDW Plt Count MPV ESR PT with INR INR PTT (Actin FS) D-Dimer Sodium Potassium Chloride Carbon Dioxide Anion Gap BUN Creatinine Est GFR (CKD-EPI)AfAm Est GFR (CKD-EPI)NonAf Random Glucose Hemoglobin A1c % Calcium Phosphorus Magnesium Ferritin Total Bilirubin AST ALT Alkaline Phosphatase LD Total Troponin I C-Reactive Protein B-Natriuretic Peptide Total Protein Albumin Triglycerides Cholesterol Total LDL Cholesterol HDL Cholesterol TSH Free T4 Urine Color Urine Appearance Urine pH Ur Specific Edwards Urine Protein Urine Glucose (UA) Urine Ketones Urine Blood Urine Nitrite Urine Bilirubin Urine Urobilinogen Ur Leukocyte Esterase Opiates Screen Negative Methadone Screen Negative Barbiturate Screen Negative Phencyclidine Screen Negative Ur Amphetamines Screen Negative MDMA (Ecstasy) Screen Negative Benzodiazepines Screen Negative Cocaine Screen Negative U Marijuana (THC) Screen Positive A* COVID-19 (ADRIENNE) HIV Ag/Ab Combo Qual Influenza A (Rapid) Negative Influenza B (Rapid) Negative RSV Rapid Negative 12/28/19 12/28/19 12/29/19 18:00 22:40 11:30 WBC 5.2 RBC 3.89 Hgb 11.7 Hct 35.2 MCV 90.4 MCH 30.0 MCHC 33.2 RDW 14.5 Plt Count 311 MPV 8.1 ESR PT with INR 12.00 INR 0.99 PTT (Actin FS) 29.3 D-Dimer Sodium Potassium Chloride Carbon Dioxide Anion Gap BUN Creatinine Est GFR (CKD-EPI)AfAm Est GFR (CKD-EPI)NonAf Random Glucose Hemoglobin A1c % Calcium Phosphorus Magnesium Ferritin Total Bilirubin AST ALT Alkaline Phosphatase LD Total Troponin I 0.03 C-Reactive Protein B-Natriuretic Peptide Total Protein Albumin Triglycerides Cholesterol Total LDL Cholesterol HDL Cholesterol TSH Free T4 Urine Color Urine Appearance Urine pH Ur Specific Edwards Urine Protein Urine Glucose (UA) Urine Ketones Urine Blood Urine Nitrite Urine Bilirubin Urine Urobilinogen Ur Leukocyte Esterase Opiates Screen Methadone Screen Barbiturate Screen Phencyclidine Screen Ur Amphetamines Screen MDMA (Ecstasy) Screen Benzodiazepines Screen Cocaine Screen U Marijuana (THC) Screen COVID-19 (ADRIENNE) HIV Ag/Ab Combo Qual Influenza A (Rapid) Influenza B (Rapid) RSV Rapid 12/29/19 12/29/19 11:30 11:30 WBC RBC Hgb Hct MCV MCH MCHC RDW Plt Count MPV ESR PT with INR INR PTT (Actin FS) D-Dimer Sodium 143 Potassium 3.5 Chloride 109 H Carbon Dioxide 27 Anion Gap 7 L BUN 12.5 Creatinine 0.9 Est GFR (CKD-EPI)AfAm 94.67 Est GFR (CKD-EPI)NonAf 81.68 Random Glucose 99 Hemoglobin A1c % Calcium 8.6 Phosphorus 4.0 Magnesium 2.4 Ferritin Total Bilirubin 0.6 AST 13 L ALT 46 Alkaline Phosphatase 63 LD Total Troponin I C-Reactive Protein B-Natriuretic Peptide Total Protein 6.0 L Albumin 3.0 L Triglycerides Cholesterol Total LDL Cholesterol HDL Cholesterol TSH Free T4 Urine Color Urine Appearance Urine pH Ur Specific Edwards Urine Protein Urine Glucose (UA) Urine Ketones Urine Blood Urine Nitrite Urine Bilirubin Urine Urobilinogen Ur Leukocyte Esterase Opiates Screen Methadone Screen Barbiturate Screen Phencyclidine Screen Ur Amphetamines Screen MDMA (Ecstasy) Screen Benzodiazepines Screen Cocaine Screen U Marijuana (THC) Screen COVID-19 (ADRIENNE) HIV Ag/Ab Combo Qual Negative Influenza A (Rapid) Influenza B (Rapid) RSV Rapid HOSPITAL COURSE: Date of Admission:12/28/19 Patient is a 39 F with no significant PMH who presented to [facility] with SOB/cough and orthopnea for approximatly 2 weeks. Patient was found to have a BNP > 9K. Chest CT with peripheral vascular congestion, cardiomegaly as well as pleural and pericardial effusions. Echocardiogram revealed an EF of 15-20%, small to moderate pericardial effusion and possible tamponade. While in ED, patient was treated with IV Lasix and Zosyn for a possible dental abscess. Patient was transferred by Cardiology to a tertiary care facility for further care under a specialized CHF team. Date of Discharge: 12/29/19 Minutes to complete discharge: 35 Discharge Summary Problems reviewed: Yes Reason For Visit: SHORTNESS OF BREATH HYPOXIA NEW ONSET OF CONGESTIV - Instructions Referrals: Arcenio Cervantes RES IM [Primary Care Provider] - Disposition: TRANSFER ACUTE CARE/OTHER HOSP - Home Medications Comprehensive Discharge Medication List: Ambulatory Orders Acetaminophen [Tylenol] 650 mg PO Q6H #30 tablet 11/26/16 Ondansetron HCl [Zofran] 4 mg PO Q8H #20 tablet 11/26/16 This patient is new to me today: No Emergency Visit: Yes ED Registration Date: 12/28/19 Care time: The patient presented to the Emergency Department on the above date and was hospitalized for further evaluation of their emergent condition. Critical Care patient: No - Discharge Referral Referred to [facility] Med P.C.: No ATTENDING PHYSICIAN STATEMENT I saw and evaluated the patient. I reviewed the resident's note and discussed the case with the resident. I agree with the resident's findings and plan as documented. SUBJECTIVE: OBJECTIVE: ASSESSMENT AND PLAN:
== END 2019-12-29 14:41 | disposition short-term general hospital (02) | DRG 194 ==
LOC: JER 13:12 → JERBED 14:07
PROVIDERS: ATTEND Internal Medicine
DX: I11.0 Hypertensive heart disease with heart failure (principal); K04.7 Periapical abscess without sinus; F12.10 Cannabis abuse, uncomplicated; R05 Cough; I50.9 Heart failure, unspecified; I31.4 Cardiac tamponade; I31.3 Pericardial effusion (noninflammatory); F17.210 Nicotine dependence, cigarettes, uncomplicated; I42.8 Other cardiomyopathies
CPT/HCPCS: 36415; 70486-TC; 71045-TC-FY; 71250-TC; 80053; 80061; 80307; 81003; 82728; 83036; 83615; 83721; 83735; 83880; 84100; 84439; 84443; 84484; 84703; 85025; 85027; 85379; 85610; 85651; 85730; 86140; 87040; 87389; 87804; 87807; 93005; 93010; 93306-TC; 99285-25; C9803; U0003

== ENCOUNTER 2020-03-13 00:27 | Emergency (ER) | payer OTHER ==
[2020-03-13 01:09] VITALS: BP 134/74; PULSE 89; TEMP 98.9; BMI 31.1
[2020-03-13] MEDS ORDERED: LIDOCAINE 5% TOPICAL PATCH TP ONE (01:12)
[2020-03-13] MEDS ORDERED: NAPROXEN 500 MG TABLET PO ONE (01:12)
[2020-03-13] MEDS ORDERED: LIDOCAINE 5% TOPICAL PATCH ONE (01:18)
[2020-03-13] MEDS ORDERED: NAPROXEN 500 MG TABLET ONE (01:18)
[2020-03-13] MEDS ORDERED: LIDOCAINE PATCH REMOVAL MC ONE (13:00)
== END 2020-03-13 01:47 | disposition home or self-care (01) ==
LOC: JER 00:27
DX: M54.5 Low back pain (principal)
CPT/HCPCS: 99283-25

== ENCOUNTER 2020-10-08 12:27 | Emergency (ER) | payer OTHER ==
[2020-10-08 12:36] VITALS: BMI 34.0
[2020-10-08 14:47] LABS: BASO % 1.2 % (0-2.0); EOS % 0.7 % (0-4.5); HEMATOCRIT 38.4 % (32.4-45.2); HEMOGLOBIN 12.9 GM/dL (10.7-15.3); LYMPH % 31.3 % (8-40); MCH 30.8 pg (25.7-33.7); MCHC 33.7 g/dl (32.0-36.0); MEAN CELL VOLUME 91.4 fl (80-96); MEAN PLT VOLUME 7.1 fl (7.5-11.1); NEUT % 60.8 % (42.8-82.8); PLATELET COUNT 291 10^3/uL (134-434); RDW 14.9 % (11.6-15.6); WHITE BLOOD COUNT 6.9 K/mm3 (4.0-10.0)
[2020-10-08] MEDS ORDERED: FUROSEMIDE 40 MG/4 ML INJECTABLE VIAL IVPUSH ONE (15:09)
[2020-10-08 15:16] LABS: CHLORIDE 110 mmol/L (98-107); SODIUM 138 mmol/L (136-145)
[2020-10-08 15:19] LABS: BLOOD UREA NITROGEN 6.7 mg/dL (7-18)
[2020-10-08 15:20] LABS: ALBUMIN 3.2 g/dl (3.4-5.0); CALCIUM 8.5 mg/dL (8.5-10.1); CO2 21 mmol/L (21-32); GLUCOSE,RANDOM 77 mg/dL (74-106)
[2020-10-08 15:23] LABS: CREATININE 0.8 mg/dL (0.55-1.3); SGPT/ALT 21 U/L (13-61)
[2020-10-08 15:24] LABS: BILIRUBIN,TOTAL 0.5 mg/dL (0.2-1); SGOT/AST 54 U/L (15-37); TOT PROT 7.3 g/dl (6.4-8.2)
[2020-10-08] MEDS ORDERED: FUROSEMIDE 40 MG/4 ML INJECTABLE VIAL ONE (15:24)
[2020-10-08 15:25] LABS: ALK PHOS 82 U/L (45-117)
[2020-10-08 15:33] LABS: ANION GAP 7 MMOL/L (8-16)
[2020-10-08 16:10] VITALS: BP 140/85; PULSE 78; TEMP 98
== END 2020-10-08 15:40 | disposition home or self-care (01) ==
LOC: JER 12:27
PROC: 3E033GC Introduction of Other Therapeutic Substance into Peripheral Vein, Percutaneous Approach (ICD-10-PCS; principal; 2020-10-08)
DX: R06.00 Dyspnea, unspecified (principal)
CPT/HCPCS: 36415; 80053; 85025; 93005; 93010; 99284-25

== ENCOUNTER 2021-06-20 06:31 | Emergency (ER) | payer OTHER ==
[2021-06-20 06:47] VITALS: BP 157/99; PULSE 102; TEMP 97.9; BMI 32.5
[2021-06-20] MEDS ORDERED: morphine CARPU-JECT 2 MG/1 ML DISP.SYRIN IM ONE (08:03)
== END 2021-06-20 10:41 | disposition home or self-care (01) ==
LOC: JER 06:31
PROC: 0U9MXZZ Drainage of Vulva, External Approach (ICD-10-PCS; principal; 2021-06-20)
PROC: 3E023GC Introduction of Other Therapeutic Substance into Muscle, Percutaneous Approach (ICD-10-PCS; 2021-06-20)
DX: N75.0 Cyst of Bartholin's gland (principal)
CPT/HCPCS: 99284-25

== ENCOUNTER 2022-04-01 23:37 | Emergency (ER) | payer OTHER ==
[2022-04-02 00:01] VITALS: BP 146/101; PULSE 115; RESP 18; TEMP 99; BMI 42.5
[2022-04-02 02:49] LABS: BASO % 0.8 % (0-2.0); EOS % 1.6 % (0-4.5); HEMATOCRIT 36.1 % (32.4-45.2); HEMOGLOBIN 11.6 GM/dL (10.7-15.3); LYMPH % 34.5 % (8-40); MCH 28.3 pg (25.7-33.7); MCHC 32.2 g/dl (32.0-36.0); MEAN CELL VOLUME 87.7 fl (80-96); MEAN PLT VOLUME 9.1 fl (7.5-11.1); MONO % 7.3 % (3.8-10.2); NEUT % 55.8 % (42.8-82.8); PLATELET COUNT 346 10^3/uL (134-434); RBC 4.11 M/mm3 (3.60-5.2); RDW 16.1 % (11.6-15.6); WHITE BLOOD COUNT 9.3 K/mm3 (4.0-10.0)
[2022-04-02 03:04] LABS: CHLORIDE 108 mmol/L (98-107); SODIUM 139 mmol/L (136-145)
[2022-04-02 03:07] LABS: ALBUMIN 3.3 g/dl (3.4-5.0); ANION GAP 5 MMOL/L (8-16); BLOOD UREA NITROGEN 14.4 mg/dL (7-18); CALCIUM 8.7 mg/dL (8.5-10.1); CO2 26 mmol/L (21-32); GLUCOSE,RANDOM 93 mg/dL (74-106)
[2022-04-02 03:10] LABS: SGOT/AST 27 U/L (15-37); SGPT/ALT 16 U/L (13-61)
[2022-04-02 03:11] LABS: INR 1.03 (0.83-1.09); PROTHROMBIN TIME (PATIENT) 11.8 SEC (9.7-13.0)
[2022-04-02 03:12] LABS: BILIRUBIN,TOTAL 0.4 mg/dL (0.2-1)
[2022-04-02 03:13] LABS: ALK PHOS 102 U/L (45-117)
[2022-04-02 03:14] LABS: ACTIVATED PTT 25.6 SECONDS (25.2-36.5)
== END 2022-04-02 05:32 | disposition home or self-care (01) ==
LOC: JER 23:37
DX: N93.9 Abnormal uterine and vaginal bleeding, unspecified (principal); R79.89 Other specified abnormal findings of blood chemistry
CPT/HCPCS: 36415; 76830-TC; 80053; 84484; 84702; 84703; 85025; 85610; 85730; 93005; 93010; 99285-25

== ENCOUNTER 2022-10-19 07:23 | Inpatient (IN) | payer OTHER ==
[2022-10-19 08:29] LABS: VENOUS BASE EXCESS -2.1 mmol/L (-2-2); VENOUS O2 SATURATION 39.4 % (70-80); VENOUS PCO2 41.1 mmHg (38-52); VENOUS PH 7.367 (7.310-7.410)
[2022-10-19 08:31] LABS: INR 1.14 (0.83-1.09); PROTHROMBIN TIME (PATIENT) 13.2 SEC (9.7-13.0)
[2022-10-19 08:33] LABS: POTASSIUM 3.8 mmol/L (3.5-5.1)
[2022-10-19 08:34] LABS: ACTIVATED PTT 29.7 SECONDS (25.2-36.5)
[2022-10-19 08:37] LABS: BLOOD UREA NITROGEN 12.4 mg/dL (7-18); CALCIUM 8.7 mg/dL (8.5-10.1)
[2022-10-19 08:38] LABS: ALBUMIN 3.2 g/dl (3.4-5.0)
[2022-10-19 08:39] LABS: BASO % 1.4 % (0-2.0); EOS % 1.9 % (0-4.5); HEMATOCRIT 30.8 % (32.4-45.2); HEMOGLOBIN 9.7 GM/dL (10.7-15.3); LYMPH % 29.8 % (8-40); MCH 24.7 pg (25.7-33.7); MCHC 31.6 g/dl (32.0-36.0); MEAN CELL VOLUME 78.3 fl (80-96); MEAN PLT VOLUME 7.7 fl (7.5-11.1); MONO % 5.8 % (3.8-10.2); NEUT % 61.1 % (42.8-82.8); PLATELET COUNT 339 10^3/uL (134-434); RBC 3.93 M/mm3 (3.60-5.2); RDW 17.8 % (11.6-15.6); WHITE BLOOD COUNT 5.6 K/mm3 (4.0-10.0)
[2022-10-19 08:41] LABS: TOT PROT 6.2 g/dl (6.4-8.2)
[2022-10-19 08:44] LABS: BILIRUBIN,TOTAL 0.6 mg/dL (0.2-1); N-TERMINAL BNP 13183.1 pg/ml (5-125)
[2022-10-19] MEDS ORDERED: FUROSEMIDE 40 MG/4 ML INJECTABLE VIAL IVPUSH ONE (10:05)
[2022-10-19] MEDS ORDERED: FUROSEMIDE 40 MG/4 ML INJECTABLE VIAL ONE ×2 (10:17→13:22)
[2022-10-19] MEDS ORDERED: SACUBITRIL/VALSARTAN 49 MG-51 MG TABLET ONE (13:21)
[2022-10-19] MEDS ORDERED: ENOXAPARIN NA (PORCINE) 40 MG/0.4 ML DISP.SYRIN SQ ONE (13:22)
[2022-10-19] MEDS: SACUBITRIL/VALSARTAN 49 MG-51 MG TABLET PO SCH (13:26)
[2022-10-19] MEDS: FUROSEMIDE 40 MG/4 ML INJECTABLE VIAL IVPUSH SCH (13:26)
[2022-10-19] MEDS: ENOXAPARIN NA (PORCINE) 40 MG/0.4 ML DISP.SYRIN SQ SCH (13:26)
[2022-10-19 14:37] LABS: METHADONE, UR NEGATIVE (NEGATIVE); OPIATES, URI NEGATIVE (NEGATIVE); PHENCYCLIDINE,URINE NEGATIVE (NEGATIVE)
[2022-10-19 14:38] LABS: COCAINE, UR NEGATIVE (NEGATIVE); URINE AMPHETAMINES NEGATIVE (NEGATIVE); URINE BARBITURATES NEGATIVE (NEGATIVE); URINE BENZODIAZEPINES NEGATIVE (NEGATIVE)
[2022-10-19] MEDS: SPIRONOLACTONE 25 MG TABLET PO SCH (22:25)
[2022-10-20] MEDS ORDERED: SPIRONOLACTONE 25 MG TABLET ONE (00:34)
[2022-10-20 02:36] VITALS: BMI 32.0
[2022-10-20] MEDS: FUROSEMIDE 40 MG/4 ML INJECTABLE VIAL IVPUSH SCH ×2 (06:36→14:27)
[2022-10-20 08:46] LABS: BASO % 1.6 % (0-2.0); EOS % 2.8 % (0-4.5); HEMATOCRIT 31.6 % (32.4-45.2); HEMOGLOBIN 9.9 GM/dL (10.7-15.3); LYMPH % 34.2 % (8-40); MCH 24.6 pg (25.7-33.7); MCHC 31.3 g/dl (32.0-36.0); MEAN CELL VOLUME 78.7 fl (80-96); MEAN PLT VOLUME 8.4 fl (7.5-11.1); MONO % 6.6 % (3.8-10.2); NEUT % 54.8 % (42.8-82.8); PLATELET COUNT 346 10^3/uL (134-434); RBC 4.01 M/mm3 (3.60-5.2); RDW 17.8 % (11.6-15.6); WHITE BLOOD COUNT 5.4 K/mm3 (4.0-10.0)
[2022-10-20 09:00] LABS: POTASSIUM 3.4 mmol/L (3.5-5.1)
[2022-10-20 09:07] LABS: CALCIUM 8.8 mg/dL (8.5-10.1)
[2022-10-20 09:08] LABS: MAGNESIUM 2.1 mg/dL (1.8-2.4)
[2022-10-20 09:10] LABS: BILIRUBIN,TOTAL 0.7 mg/dL (0.2-1)
[2022-10-20 09:11] LABS: PHOSPHOROUS 4.8 mg/dL (2.5-4.9)
[2022-10-20] MEDS: SACUBITRIL/VALSARTAN 49 MG-51 MG TABLET PO SCH (14:27)
[2022-10-20] MEDS: ENOXAPARIN NA (PORCINE) 40 MG/0.4 ML DISP.SYRIN SQ SCH (14:27)
[2022-10-20] MEDS: SPIRONOLACTONE 25 MG TABLET PO SCH (21:13)
[2022-10-20] MEDS ORDERED: POTASSIUM CHLORIDE TABS 10 MEQ TABLET.ER (FP) PO ONE (21:33)
[2022-10-21] MEDS: FUROSEMIDE 40 MG/4 ML INJECTABLE VIAL IVPUSH SCH (06:23)
[2022-10-21 07:53] LABS: HEMOGLOBIN 10.8 GM/dL (10.7-15.3); MCH 24.9 pg (25.7-33.7); MCHC 31.7 g/dl (32.0-36.0); MEAN CELL VOLUME 78.6 fl (80-96); PLATELET COUNT 348 10^3/uL (134-434); RBC 4.33 M/mm3 (3.60-5.2); RDW 17.9 % (11.6-15.6); WHITE BLOOD COUNT 6.2 K/mm3 (4.0-10.0)
[2022-10-21 08:20] LABS: POTASSIUM 3.5 mmol/L (3.5-5.1)
[2022-10-21 08:28] LABS: CALCIUM 8.8 mg/dL (8.5-10.1)
[2022-10-21 08:29] LABS: ALBUMIN 2.9 g/dl (3.4-5.0); BLOOD UREA NITROGEN 16.6 mg/dL (7-18); MAGNESIUM 2.1 mg/dL (1.8-2.4)
[2022-10-21 08:33] LABS: BILIRUBIN,TOTAL 0.5 mg/dL (0.2-1)
[2022-10-21] MEDS: SACUBITRIL/VALSARTAN 49 MG-51 MG TABLET PO SCH (09:34)
[2022-10-21] MEDS: ENOXAPARIN NA (PORCINE) 40 MG/0.4 ML DISP.SYRIN SQ SCH (10:00)
[2022-10-21 10:08] VITALS: BP 126/66; PULSE 101; RESP 24; TEMP 98.8
== END 2022-10-21 13:18 | disposition home or self-care (01) | DRG 194 ==
LOC: JER 07:23 → JERBED 10:05 → J4W 10-20 02:15
PROVIDERS: ADMIT Internal Medicine; ATTEND Internal Medicine
DX: I50.23 Acute on chronic systolic (congestive) heart failure (principal); I42.8 Other cardiomyopathies; F17.200 Nicotine dependence, unspecified, uncomplicated; D64.9 Anemia, unspecified; I24.8 Other forms of acute ischemic heart disease
CPT/HCPCS: 0241U-QW; 36415; 71045-TC-FY; 80053; 80061; 80307; 82010; 82728; 82803; 83036; 83540; 83550; 83735; 83880; 84100; 84436; 84443; 84484; 84702; 85025; 85027; 85045; 85610; 85730; 93005; 93010; 93306-TC; 99285-25

== ENCOUNTER 2023-06-01 15:01 | Inpatient (IN) | payer OTHER ==
[2023-06-01] MEDS: ALBUTEROL SO4 2.5/IPRATROPIUM 0.5 INH SOL 3 ML VIAL.NEB. NEB SCH (16:00)
[2023-06-01] MEDS ORDERED: ALBUTEROL SO4 2.5/IPRATROPIUM 0.5 INH SOL 3 ML VIAL.NEB. NEB ONE (16:17)
[2023-06-01] MEDS ORDERED: ACETAMINOPHEN INJECTION 100 ML IVPB ONE (16:17)
[2023-06-01 16:38] LABS: BASO % 0.9 % (0-2.0); EOS % 1.3 % (0-4.5); HEMATOCRIT 36.1 % (32.4-45.2); LYMPH % 27.9 % (8-40); MCH 28.3 pg (25.7-33.7); MCHC 33.1 g/dl (32.0-36.0); MEAN CELL VOLUME 85.4 fl (80-96); MEAN PLT VOLUME 8.2 fl (7.5-11.1); MONO % 7.9 % (3.8-10.2); PLATELET COUNT 347 10^3/uL (134-434); RBC 4.23 M/mm3 (3.60-5.2); RDW 16.9 % (11.6-15.6); WHITE BLOOD COUNT 6.8 K/mm3 (4.0-10.0)
[2023-06-01] MEDS: ACETAMINOPHEN 1000 MG/100 ML BAG IVPB ONE (16:41)
[2023-06-01 17:02] LABS: INR 1.13 (0.83-1.09); PROTHROMBIN TIME (PATIENT) 13.1 SEC (9.7-13.0)
[2023-06-01 17:05] LABS: ACTIVATED PTT 27.9 SECONDS (25.2-36.5)
[2023-06-01 17:35] LABS: POTASSIUM 3.7 mmol/L (3.5-5.1)
[2023-06-01 17:37] LABS: ALBUMIN 3.4 g/dl (3.4-5.0); BLOOD UREA NITROGEN 15.8 mg/dL (7-18); CALCIUM 8.7 mg/dL (8.5-10.1)
[2023-06-01 17:40] LABS: CREATININE 1.1 mg/dL (0.55-1.3)
[2023-06-01 17:42] LABS: BILIRUBIN,TOTAL 0.5 mg/dL (0.2-1); TOT PROT 7.1 g/dl (6.4-8.2)
[2023-06-01 17:43] LABS: N-TERMINAL BNP 4228.3 pg/ml (5-125)
[2023-06-01] MEDS ORDERED: HEPARIN NA (PORCINE) 5,000 UNITS/ML 1ML VIAL IVPUSH PRN (20:20)
[2023-06-01] MEDS ORDERED: HEPARIN INFUSION - 25,000 UNITS/500 ML INFUS.BAG IVPB ONE (20:58)
[2023-06-01] MEDS ORDERED: HEPARIN NA (PORCINE) 5,000 UNITS/ML 1ML VIAL ONE (20:58)
[2023-06-01] MEDS: HEPARIN NA (PORCINE) 5,000 UNITS/ML 1ML VIAL SQ ONE (21:09)
[2023-06-01] MEDS: HEPARIN INFUSION - 25,000 UNITS/500 ML INFUS.BAG IVPB SCH (21:09)
[2023-06-01] MEDS ORDERED: DOCUSATE SODIUM 100 MG CAPSULE (FP) PO PRN (23:07)
[2023-06-01] MEDS ORDERED: ACETAMINOPHEN 1000 MG/100 ML BAG IVPB PRN (23:13)
[2023-06-02 01:33] VITALS: BMI 32.8
[2023-06-02] MEDS: HEPARIN NA (PORCINE) 5,000 UNITS/ML 1ML VIAL IVPUSH PRN (05:24)
[2023-06-02 07:10] LABS: POTASSIUM 3.2 mmol/L (3.5-5.1)
[2023-06-02 07:11] LABS: CALCIUM 8.7 mg/dL (8.5-10.1)
[2023-06-02 07:12] LABS: BLOOD UREA NITROGEN 17.8 mg/dL (7-18)
[2023-06-02 07:15] LABS: CREATININE 0.9 mg/dL (0.55-1.3)
[2023-06-02] MEDS: POTASSIUM CHLORIDE ORAL LIQUID 20 MEQ/15 ML PO ONE (10:13)
[2023-06-02 10:16] VITALS: BP 132/64
[2023-06-02 11:13] LABS: BASO % 0.2 % (0-2.0); EOS % 1.6 % (0-4.5); HEMATOCRIT 35.6 % (32.4-45.2); HEMOGLOBIN 11.7 GM/dL (10.7-15.3); LYMPH % 28.7 % (8-40); MCH 27.8 pg (25.7-33.7); MCHC 32.7 g/dl (32.0-36.0); MEAN CELL VOLUME 84.9 fl (80-96); MEAN PLT VOLUME 7.9 fl (7.5-11.1); MONO % 8.8 % (3.8-10.2); NEUT % 60.7 % (42.8-82.8); PLATELET COUNT 310 10^3/uL (134-434); RDW 16.5 % (11.6-15.6); WHITE BLOOD COUNT 7.6 K/mm3 (4.0-10.0)
[2023-06-02] MEDS: ASPIRIN 325 MG ENTERIC COATED TABLET (FP) PO ONE (11:36)
[2023-06-02 11:55] LABS: POTASSIUM 3.7 mmol/L (3.5-5.1)
[2023-06-02 12:02] LABS: BLOOD UREA NITROGEN 15.7 mg/dL (7-18)
[2023-06-02 12:06] LABS: CREATININE 0.9 mg/dL (0.55-1.3)
[2023-06-02 12:32] VITALS: PULSE 73; RESP 18; TEMP 98
[2023-06-02] MEDS ORDERED: ACETAMINOPHEN 325 MG TABLET (FP) PO PRN (23:07)
== END 2023-06-02 12:30 | disposition short-term general hospital (02) | DRG 190 ==
LOC: JER 15:01 → JERBED 21:29 → J4W 06-02 00:27
PROVIDERS: ADMIT Internal Medicine; ATTEND Internal Medicine
DX: I21.9 Acute myocardial infarction, unspecified (principal); I11.0 Hypertensive heart disease with heart failure; I42.8 Other cardiomyopathies; I50.22 Chronic systolic (congestive) heart failure; F17.200 Nicotine dependence, unspecified, uncomplicated; I25.110 Atherosclerotic heart disease of native coronary artery with unstable angina pectoris
CPT/HCPCS: 0241U-QW; 36415; 71045-TC-FY; 71275-TC; 80048; 80053; 83735; 83880; 84484; 84702; 85025; 85379; 85610; 85651; 85730; 86140; 93005; 93010; 99285-25; J0131; J1644; Q9967

== ENCOUNTER 2024-07-29 15:02 | Inpatient (IN) | payer OTHER ==
[2024-07-29 15:18] VITALS: BMI 35.5
[2024-07-29 15:37] LABS: ABSOLUTE IMMATURE GRANULOCYTES 0.02 x10^3/uL (0.0-0.031); BASOPHILS # 0.06 x10^3/uL (0.01-0.08); EOSINOPHIL % 1.7 % (0.7-5.8); EOSINOPHILS # 0.11 x10^3/uL (0.04-0.36); HEMATOCRIT 30.9 % (34.1-44.9); HEMOGLOBIN 9.2 g/dL (11.2-15.7); MCHC 29.8 g/dl (32.2-35.5); MEAN CELL VOLUME 79.6 fl (79.4-94.8); MEAN PLT VOLUME 9.2 fl (9.4-12.3); MONOCYTE # 0.37 x10^3/uL (0.24-0.86); MONOCYTE % 5.7 % (4.7-12.5); PLATELET COUNT 323 x10^3/uL (182-369); RDW 19.1 % (12.2-17.1)
[2024-07-29 15:56] LABS: POTASSIUM 4.1 mmol/L (3.5-5.1)
[2024-07-29 15:59] LABS: ALBUMIN 3.2 g/dl (3.4-5.0)
[2024-07-29 16:00] LABS: BLOOD UREA NITROGEN 13.5 mg/dL (7-18)
[2024-07-29 16:03] LABS: CREATININE 0.9 mg/dL (0.55-1.3)
[2024-07-29 16:04] LABS: BILIRUBIN,TOTAL 0.6 mg/dL (0.2-1); TOT PROT 6.5 g/dl (6.4-8.2)
[2024-07-29 16:07] LABS: N-TERMINAL BNP 9777.8 pg/ml (5-125)
[2024-07-29] MEDS ORDERED: FUROSEMIDE 40 MG/4 ML INJECTABLE VIAL ONE (16:53)
[2024-07-29] MEDS: FUROSEMIDE 40 MG/4 ML INJECTABLE VIAL IVPUSH ONE (16:57)
[2024-07-29] MEDS ORDERED: CARVEDILOL 6.25 MG TABLET (FP) ONE (21:33)
[2024-07-29] MEDS ORDERED: SPIRONOLACTONE 25 MG TABLET ONE (21:33)
[2024-07-29] MEDS ORDERED: HEPARIN NA (PORCINE) 5,000 UNITS/ML 1ML VIAL ONE (21:34)
[2024-07-29] MEDS: SPIRONOLACTONE 25 MG TABLET PO SCH (21:49)
[2024-07-29] MEDS: CARVEDILOL 12.5 MG TABLET (FP) PO SCH (21:50)
[2024-07-29] MEDS: HEPARIN NA (PORCINE) 5,000 UNITS/ML 1ML VIAL SQ SCH (21:51)
[2024-07-30 06:23] LABS: POTASSIUM 4.4 mmol/L (3.5-5.1)
[2024-07-30 06:29] LABS: CALCIUM 9.1 mg/dL (8.5-10.1)
[2024-07-30 06:30] LABS: BLOOD UREA NITROGEN 17.8 mg/dL (7-18)
[2024-07-30 06:32] LABS: ABSOLUTE IMMATURE GRANULOCYTES 0.02 x10^3/uL (0.0-0.031); BASOPHILS # 0.04 x10^3/uL (0.01-0.08); CREATININE 0.9 mg/dL (0.55-1.3); EOSINOPHIL % 2.1 % (0.7-5.8); EOSINOPHILS # 0.14 x10^3/uL (0.04-0.36); HEMATOCRIT 31.8 % (34.1-44.9); HEMOGLOBIN 9.4 g/dL (11.2-15.7); MCHC 29.6 g/dl (32.2-35.5); MEAN CELL VOLUME 79.1 fl (79.4-94.8); MEAN PLT VOLUME 9.7 fl (9.4-12.3); MONOCYTE # 0.44 x10^3/uL (0.24-0.86); MONOCYTE % 6.5 % (4.7-12.5); PLATELET COUNT 329 x10^3/uL (182-369); RDW 19.1 % (12.2-17.1)
[2024-07-30] MEDS ORDERED: FUROSEMIDE 40 MG/4 ML INJECTABLE VIAL ONE ×2 (06:50→14:26)
[2024-07-30] MEDS: FUROSEMIDE 40 MG/4 ML INJECTABLE VIAL IVPUSH SCH (06:56)
[2024-07-30] MEDS ORDERED: CARVEDILOL 12.5 MG TABLET (FP) PO SCH (07:31)
[2024-07-30] MEDS ORDERED: CARVEDILOL 3.125 MG TABLET (FP) ONE (10:15)
[2024-07-30] MEDS ORDERED: HEPARIN NA (PORCINE) 5,000 UNITS/ML 1ML VIAL ONE (10:16)
[2024-07-30] MEDS: CARVEDILOL 3.125 MG TABLET (FP) PO SCH (11:03)
[2024-07-31 08:10] LABS: ABSOLUTE IMMATURE GRANULOCYTES 0.02 x10^3/uL (0.0-0.031); BASOPHILS # 0.05 x10^3/uL (0.01-0.08); EOSINOPHIL % 2.1 % (0.7-5.8); EOSINOPHILS # 0.14 x10^3/uL (0.04-0.36); HEMATOCRIT 35.1 % (34.1-44.9); HEMOGLOBIN 10.5 g/dL (11.2-15.7); MCHC 29.9 g/dl (32.2-35.5); MEAN CELL VOLUME 78.5 fl (79.4-94.8); MEAN PLT VOLUME 9.9 fl (9.4-12.3); MONOCYTE # 0.55 x10^3/uL (0.24-0.86); MONOCYTE % 8.1 % (4.7-12.5); PLATELET COUNT 354 x10^3/uL (182-369); POTASSIUM 3.7 mmol/L (3.5-5.1)
[2024-07-31 08:16] LABS: ALBUMIN 3.5 g/dl (3.4-5.0); BLOOD UREA NITROGEN 22.3 mg/dL (7-18); CALCIUM 9.3 mg/dL (8.5-10.1); MAGNESIUM 2.1 mg/dL (1.8-2.4)
[2024-07-31 08:19] LABS: CREATININE 1.2 mg/dL (0.55-1.3)
[2024-07-31 08:21] LABS: TOT PROT 7.1 g/dl (6.4-8.2)
[2024-07-31 08:23] LABS: BILIRUBIN,TOTAL 0.7 mg/dL (0.2-1)
[2024-07-31] MEDS: FUROSEMIDE 40 MG TABLET (FP) PO SCH (13:40)
[2024-07-31] MEDS: SACUBITRIL/VALSARTAN 24 MG-26 MG TABLET PO SCH (21:01)
[2024-08-01 03:39] VITALS: RESP 18
[2024-08-01 15:20] VITALS: BP 109/63; PULSE 96; TEMP 98
== END 2024-08-01 17:45 | disposition home or self-care (01) | DRG 194 ==
LOC: JER 15:02 → JERBED 16:32 → J4W 07-30 20:56
PROVIDERS: ADMIT Internal Medicine; ATTEND Internal Medicine
DX: I50.23 Acute on chronic systolic (congestive) heart failure (principal); I42.8 Other cardiomyopathies; I25.2 Old myocardial infarction; F17.200 Nicotine dependence, unspecified, uncomplicated
CPT/HCPCS: 0241U-QW; 36415; 71045-TC-FY; 80048; 80053; 83735; 83880; 84484; 85025; 93005; 93010; 93306-TC; 99285-25; J1644